=== PATIENT | female | born 1940 | race Caucasian/White ===

== ENCOUNTER 2017-01-09 05:56 | Inpatient (IN) | payer OTHER ==
--- NOTE | 2016-12-29 14:09 | GHP ---
[f rep st] PREOP HISTORY AND PHYSICAL DATE OF SURGERY: Scheduled for 01/09/2017. PROBLEM: Revision of right total hip arthroplasty for polyethylene wear. HISTORY OF PRESENTING ILLNESS: The patient is a 76-year-old woman admitted for revision surgery on her right total hip. She underwent a right total hip arthroplasty by Dr. Eduard Rios in [place] in 2002. She has done reasonably well with the hip over the years. In mid October of 2016, she sustained a dislocation of the right hip while hiking. 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 PAST MEDICAL HISTORY: Overall, she is in good general health. She has had a partial colectomy for complications arising from some type of mesh surgery for her hysterectomy. No history of heart disease, DVT, hepatitis, sleep apnea or bleeding problems. She has a left total knee arthroplasty. CURRENT MEDICATIONS: Apresoline p.r.n. for sleep. Lexapro every other day for depression. ALLERGIES: Drug allergies: None. Metal allergy: None. Latex allergy: None. SOCIAL HISTORY: The patient does not smoke cigarettes and occasionally drinks alcohol. 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 FAMILY HISTORY: Positive for cancer, arthritis and a blood coagulation disorder. PHYSICAL EXAMINATION: GENERAL: She is a healthy-appearing woman. Height 5 feet 5 inches, weight 125 pounds, BMI 20.8. EYES: Conjunctivae and sclerae are clear. Pupils are round and reactive. MOUTH: Good oral hygiene. No loose teeth. CHEST: Clear. HEART: Regular rhythm. No murmurs. EXTREMITIES : Pertinent findings limited to her right hip. She has full hip extension, 120 degrees of flexion. IMAGING: Her films show a Biomet total hip arthroplasty. There is evidence of polyethylene wear with asymmetrical positioning of the femoral head component within the acetabulum. She has a 28 mm head. The cup and the stem look solid. No significant osteolysis. 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 She will undergo revision surgery for polyethylene liner exchange and exchange of the head for a larger diameter femoral head component. The surgery has been described to her, including the risks, complications, expectations, and recovery time. All her questions have been answered, and she consents to surgery. She is aware that there is a slightly higher risk of dislocation following revision surgery than there is with a primary index surgery. She is aware of the risk of infection, and sciatic nerve injury. All her questions have been answered, and she consents to surgery. /[id number]/MODL MTDD
[~2017-01-09 05:56] MED LIST: ACETAMINOPHEN 325 MG TAB PO ONE; DEXAMETHASONE 4 MG/ML VIAL IVP ONE; FAMOTIDINE 20 MG TAB PO ONE; LIDOCAINE 1% 2 ML INJ ID PRN; LR 1,000 ML IV ONE; ceFAZolin 2 GM/DEXTROSE 100 ML IV ONE
[2017-01-09] MEDS ORDERED: TRANEXAMIC ACID IV ONE (06:00)
[2017-01-09] MEDS ORDERED: POVIDONE-IODINE 20 ML in SODIUM CL IRRIG SOLUTION 500 ML IRR ONE (06:00)
[2017-01-09] MEDS ORDERED: NS IV ONE (06:00)
[2017-01-09] MEDS ORDERED: ROPIVACAINE 0.2% 80 MG, EPINEPHrine 0.2 MG, KETOROLAC TROMETHAMINE 30 MG in BAG 0 ML IU ONE (06:00)
[2017-01-09] MEDS ORDERED: ceFAZolin 1 GM/5 ML SYR ONE (06:50)
--- NOTE | 2017-01-09 07:05 | PDHPUP ---
History & Physical Update H&P update statement: This history and physical update is based on an assessment of the patient which was completed after admission or registration (within 24 hours), but prior to the surgery/procedure. H&P update: H&P reviewed & patient examined, no change in patient's condition since H&P completed
[2017-01-09] MEDS ORDERED: MIDAZOLAM 2 MG/2 ML VIAL ONE (07:12)
[2017-01-09] MEDS ORDERED: ALBUMIN 5% 250 ML BOTTLE IV ONE (07:13)
[2017-01-09] MEDS ORDERED: BUPIVACAINE 0.5% 30 ML SDV ONE (07:15)
[2017-01-09] MEDS ORDERED: PROPOFOL 200 MG/20 ML VIAL ONE (07:30)
[2017-01-09] MEDS ORDERED: fentaNYL 100 MCG/2 ML INJ ONE ×3 (07:44→09:55)
[2017-01-09] MEDS ORDERED: ONDANSETRON 4 MG/2 ML VIAL ONE (07:48)
[2017-01-09] MEDS ORDERED: LIDOCAINE 2% 5 ML SDV ONE (07:48)
[2017-01-09] MEDS ORDERED: SUGAMMADEX SODIUM 200 MG/2 ML VIAL IVP ONE (07:48)
[2017-01-09] MEDS ORDERED: ROCURONIUM 50 MG/5 ML VIAL ONE (07:48)
[2017-01-09] MEDS ORDERED: METOPROLOL TARTRATE 5 MG/5 ML INJ ONE (07:48)
[2017-01-09] MEDS ORDERED: RANITIDINE 50 MG/2 ML VIAL ONE (07:48)
[2017-01-09] MEDS ORDERED: ONDANSETRON 4 MG/2 ML VIAL IVP PRN ×2 (08:01→09:00)
[2017-01-09] MEDS ORDERED: NALOXONE HCL 0.4 MG/ML INJ IVP PRN (08:01)
[2017-01-09] MEDS ORDERED: HYDROmorphONE/DILAUDID 1 MG/ML INJ IVP PRN (08:01)
[2017-01-09] MEDS ORDERED: LR 500 ML IV PRN (08:01)
[2017-01-09] MEDS ORDERED: ALBUTEROL 3 ML DEYVIAL IH PRN (08:01)
[2017-01-09] MEDS ORDERED: fentaNYL 100 MCG/2 ML INJ IVP PRN (08:01)
[2017-01-09] MEDS ORDERED: DEXAMETHASONE 4 MG/ML VIAL IVP PRN (08:01)
--- NOTE | 2017-01-09 08:01 | PDANEPAE ---
ANE Past Medical History - Cardiovascular History Hx Hypertension: No Hx Arrhythmias: No Hx Chest Pain: No Hx Coronary Artery / Peripheral Vascular Disease: No Hx CHF / Valvular Disease: No Hx Palpitations: No - Pulmonary History Hx COPD: No Hx Asthma/Reactive Airway Disease: No Hx Recent Upper Respiratory Infection: No Hx Oxygen in Use at Home: No Hx Sleep Apnea: No Sleep Apnea Screening Result - Last Documented: Negative - Neurologic History Hx Cerebrovascular Accident: No Hx Seizures: No Hx Dementia: No - Endocrine History Hx Diabetes: No - Renal History Hx Renal Disorders: No - Liver History Hx Hepatic Disorders: Yes - Neurological & Psychiatric Hx Hx Neurological and Psychiatric Disorders: Yes Neurological / Psychiatric History Comment: LEFT HAND (CARPAL TUNNEL). STRESS FROM BUISNESS - Cancer History Hx Cancer: Yes Cancer History Comment: SKIN CA - Congenital Disorder History Hx Congenital Disorders: No - GI History Hx Gastrointestinal Disorders: No - Other Health History Other Health History: NONE - Chronic Pain History Chronic Pain: No - Surgical History Prior Surgeries: CARPAL TUNNEL, DEC 2013 ([facility]) EMERGENCY ABD SURGERY KNEE REPLACEMENT. CATERACT ANE Review of Systems Review of Systems: - Exercise capacity METS (RN): 6 METS ANE Patient History - Allergies Allergies/Adverse Reactions: No Known Allergies Allergy (Verified 12/31/13 19:26) - Home Medications Home Medications: Cholecalciferol Vit D3 [Vitamin D3 (*)] 1,000 units PO DAILY 01/02/14 [Last Taken 12/28/16] Herbals/Supplements -Info Only 1 ea PO DAILY 01/02/14 [Last Taken 12/28/16] Vitamin B Complex [B Complex] 1 each PO DAILY 01/02/14 [Last Taken 12/28/16] ALPRAZolam [Xanax 0.5 MG (*)] 0.5 mg PO HS PRN 12/13/16 [Last Taken 01/07/17 22: 00] Escitalopram Oxalate [Lexapro] 10 mg PO Q2D 12/13/16 [Last Taken 01/08/17] Niacin [Niacin 500 mg (*)] 500 mg PO HS 12/13/16 [Last Taken 12/28/16] - NPO status NPO Since - Liquids (Date): 01/09/17 NPO Since - Liquids (Time): 03:00 NPO Since - Solids (Date): 01/08/17 NPO Since - Solids (Time): 19:00 - Smoking Hx Smoking Status: Never smoked - Family Anes Hx Family Hx Anesthesia Complications: NONE ANE Labs/Vital Signs - Vital Signs Blood Pressure: 165/92 Heart Rate: 67 Respiratory Rate: 20 O2 Sat (%): 98 Height: 167.64 cm Weight: 56.699 kg ANE Physical Exam - Airway Neck exam: FROM Mallampati Score: Class 1 Mouth exam: normal dental/mouth exam - Pulmonary Pulmonary: no respiratory distress, no rales or rhonchi, clear to auscultation - Cardiovascular Cardiovascular: regular rate and rhythym, no murmur, rub, or gallop - ASA Status ASA Status: II ANE Anesthesia Plan Anesthesia Plan: general endotracheal anesthesia (Patient with history of unsucesful attempt at SAB in the past, back feels fused), spinal
[2017-01-09] MEDS ORDERED: DIPHENOXYLATE/ATROPINE LOMOTIL 1 TAB PO PRN (09:00)
[2017-01-09] MEDS ORDERED: LACTULOSE 20 GM/30 ML UDCUP PO PRN (09:00)
[2017-01-09] MEDS ORDERED: ONDANSETRON DISINTEGRATING 4 MG TAB PO PRN (09:00)
[2017-01-09] MEDS ORDERED: BISACODYL 10 MG SUPP PR PRN (09:00)
[2017-01-09] MEDS ORDERED: TAPENTADOL HCL 50 MG TAB PO PRN (09:00)
[2017-01-09] MEDS ORDERED: LR 1,000 ML IV SCH (09:00)
[2017-01-09] MEDS ORDERED: KETOROLAC 30 MG/1 ML SDV IVP PRN (09:00)
[2017-01-09] MEDS ORDERED: POLYETHYLENE GLYCOL 3350 17 GM PKT PO PRN (09:00)
[2017-01-09] MEDS ORDERED: CYCLOBENZAPRINE 10 MG TAB PO PRN (09:00)
[2017-01-09] MEDS ORDERED: PROMETHAZINE HCL 25 MG SUPPR PR PRN (09:00)
[2017-01-09] MEDS ORDERED: diphenhydrAMINE 25 MG CAP PO PRN (09:00)
[2017-01-09] MEDS ORDERED: PROMETHAZINE HCL 25 MG/ML INJ IVP PRN (09:00)
[2017-01-09] MEDS ORDERED: MAGNESIUM HYDROXIDE 30 ML UDCUP PO PRN (09:00)
[2017-01-09] MEDS ORDERED: METOCLOPRAMIDE 10 MG/2 ML VIAL IVP PRN (09:00)
[2017-01-09] MEDS ORDERED: traMADol 50 MG TAB PO PRN (09:00)
[2017-01-09] MEDS ORDERED: TEMAZEPAM 15 MG CAP PO PRN (09:00)
--- NOTE | 2017-01-09 09:00 | POSTOPPROG ---
Post Op Note Date of Operation: 01/09/17 Surgeon: Girma Styles Supervisor Braiding: Suresh Rice/Fabienne Vogel Anesthesiologist: Dr. 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 Post-op Diagnosis: Same Procedure: Right total hip arthroplasty revision with liner exchange and femoral head Inf/Abcess present in the surg proc area at time of surgery?: No EBL: 100-500
[2017-01-09] MEDS ORDERED: ALPRAZolam 0.5 MG TAB PO PRN (09:02)
--- NOTE | 2017-01-09 09:54 | POSTANESTH ---
Post Anesthetic Evaluation Cardiovascular Status: Normal, Stable Respiratory Status: Normal, Stable Level of Consciousness/Mental Status: Can Participate in Eval Pain Control: Adequate, Prn Tx Ordered Nausea/Vomiting Control: Adequate, Prn Tx Ordered Complications Possibly Related to Anesthesia: None Noted
--- NOTE | 2017-01-09 10:02 | GOP ---
[f rep st] OPERATIVE REPORT DATE OF OPERATION: 01/09/2017 SURGEON: Girma Styles MD APPLIANCE PARTS COUNTER CLERK: Suresh Rice CFA. Fabienne Vogel RN. ANESTHESIA: General. ANESTHESIOLOGIST: Deya Caballero MD. 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 PROCEDURE PERFORMED: 01/09/2017: Right total hip revision with polyethylene liner exchange and femo ral head changed. FINDINGS: DESCRIPTION OF PROCEDURE: The patient was given 2 g of IV Ancef preoperatively within 60 minutes of surgery. She also received IV tranexamic acid at a dose of 20 mg/kg. She was placed on the [facility] g room table, and Dr. Caballero attempted a spinal anesthetic, but because of degenerative changes in he r lumbar spine, it was unsuccessful. She was then placed supine and given general anesthesia. A Fol ey catheter was not used. She wore and ALECIA stocking and SCD on the nonoperative leg. She was rolled to the left lateral decubitus position. The position was secured with a pegboard table attachment. An axillary roll was used, and all pressure points were carefully padded. I was careful to lock her pelvis in a vertical position. Her perineum was isolated with plastic adhesive drapes. Her right h ip and right lower extremity were prepped with ChloraPrep. They were draped free using sterile sheet s, stockinette, and Ioban plastic drapes. The World Health Organization time-out was performed to verify the correct surgical side and site and patient identity. The Samson time-out was also performed. I reopened her original posterolateral skin incision, which was about 6 inches in length. Subcutaneous tissues were sharply divided, and he mostasis was obtained using electrocautery. She had a very thin layer of subcutaneous fat. Her fasc ia donato was identified and split along the axis of its fibers. I could see some residual nonabsorbab le sutures in the fascia donato. Most of these were removed. I curved posteriorly and proximally, and split the fascia of the gluteus melanie and bluntly split the muscle fibers in line with their orien tation. The Charnley self-retaining retractor was inserted. Her sciatic nerve was incorporated in s car tissue posteriorly. I dissected directly off the back of the greater trochanter and stayed away from the area of the sciatic nerve. She had quite a bit of dense scar tissue posteriorly. The combi frida layer of repaired external rotators and posterior hip capsule were divided at the base of the fem oral neck, tagged, and reflected posteriorly. A modest amount of clear synovial fluid was present in the joint. There was quite a bit of lobulated, chronically inflamed scar tissue and synovium in the joint. I excised a section of this tissue and sent it for culture and for histologic examination. I began excising a lot of the posterior scar tissue. I dissected over the superior anterior aspect o f the acetabular component. The hip was dislocated posteriorly. A smooth 8-inch Steinmann pin was i nserted vertically into the ilium, superior to the acetabulum. This acted as a retractor for the abd uctors. I used a bone tamp to tap off the femoral head. There was obvious wear of the polyethylene. Before dislocation, I had checked for stability. Because of the increased wear in the play in the articulation between the femoral head and the polyethylene, she was definitely unstable posteriorly a t 90 degrees of flexion and 10 or 20 degrees of internal rotation. Using appropriate retractors, I held the proximal femur and the neck portion of the femoral component anteriorly. This gave me good access to the acetabulum. Using scalpel and electrocautery, I excise d scar tissue from around the perimeter of the acetabular component. The little slot for chief loose rachel the fixation rim for the polyethylene was inferior and posterior. I could not get the loosening instrument aligned in a proper angle. I went ahead and used a 0.5 inch osteotome to pry out the annabella yethylene. I was able to do that without damaging the locking ring. I did a trial reduction with a lipped liner. My plan was to substitute with a 32 mm head; she had a [address] originally. I did the trial reduction with a 0 neck length and a 32 mm head. Th e hip was very stable in flexion, adduction, and up to 70 degrees of internal rotation. She was also stable anteriorly. The acetabulum was irrigated and cleaned. I selected the Biomet vitamin E-infused liner with a lip. This was inserted and tapped securely into place. The locking mechanism worked well. I dialed the lip so that it was directly posterior. I then carefully cleaned the trunnion. There was no evidence of corrosion of the trunnion. I select ed a Biomet 32 mm cobalt chrome head with a 0 neck length. This was tapped securely onto the clean t runnion. I did another reduction and checked the stability. She was very stable. I did not change her leg length. Preoperatively the position of her acetabular shell was excellent and it did not nee d to be changed her altered. The wound was thoroughly irrigated. The combined layer of scarred capsule and external rotators was repaired using #2 FiberWire sutures through drill holes in the greater trochanter. One final irrigation was performed with dilute Betadine solution. Subcutaneous tissues were injected with 40 mL of the joint cocktail. Her fascia donato was closed first with a couple of interrupted [id number] #2 FiberWire sutures fo llowed by a running #2 barbed Ethicon Stratafix PDO suture. Subcutaneous tissues were closed with a running 0 barbed Ethicon Stratafix Monoderm suture. The skin was closed with a running 3-0 barbed Et hicon Stratafix Monoderm subcuticular suture. The skin edges were reapproximated and sealed with Doug mabond glue. The wound was covered with a strip of Telfa and everything was held in place with a pie ce of Aquacel Ag surgical dressing. A long-leg ALECIA stocking and SCD were applied to her right lower extremity. She wore a stocking and S CD on the opposite leg during the procedure. An abduction pillow was placed between her knees. She was awakened from anesthesia and rolled to the supine [facility] She was taken to PACU in satisfactory condition. There were no recognized intraoperative complications. The estimated blood loss was about 200 mL. The sponge and needle counts were correct on 2 occasions. Her original implants were made by [employer]. I used a vitamin E-infused lipped polyethylene liner. Th e femoral head was a 32 mm cobalt chrome head with a 0 neck length. Suresh Rice and Fabienne Vogel acted as surgical assistants. Their assistance was a medical necessi ty for safe completion of the procedure. Copy requested to: Dr. Chanel Kelley, [place] /[id number]/MODL
[2017-01-09] MEDS: oxyCODONE IR 5 MG TAB PO PRN (11:04)
[2017-01-09] MEDS: ACETAMINOPHEN 325 MG TAB PO SCH ×2 (12:35→17:32)
[2017-01-09] MEDS: FERROUS SULFATE 140 MG TAB.ER PO SCH (13:41)
[2017-01-09] MEDS: SENNOSIDES/DOCUSATE SODIUM TAB PO SCH ×2 (13:41→20:34)
[2017-01-09] MEDS: ceFAZolin 2 GM/DEXTROSE 100 ML IV SCH ×2 (14:17→22:11)
[2017-01-09] MEDS: FAMOTIDINE 20 MG TAB PO SCH (20:34)
[2017-01-09] MEDS: ASPIRIN 325 MG TAB PO SCH (20:34)
[2017-01-09] MEDS ORDERED: NIACIN 500 MG TAB PO SCH (21:00)
[2017-01-09 23:58] VITALS: RESP 18
[2017-01-10] MEDS: ACETAMINOPHEN 325 MG TAB PO SCH ×2 (01:23→09:28)
[2017-01-10 04:59] LABS: HEMATOCRIT 37.5 % (38.0-47.0); HEMOGLOBIN 12.6 g/dL (12.6-16.3)
--- NOTE | 2017-01-10 07:48 | SOAPPROG ---
SOAP Progress Note Assessment/Plan: Assessment: Afebrile. Min pain. Up and walking in [place]. Dsg is dry. H/H is good. Sciatic nerve intact. Plan:Continue PT Home later today. 01/10/17 07:47 Objective: Vital Signs Temp Pulse Resp BP Pulse Ox 36.9 C 69 18 143/75 H 96 01/10/17 03:58 01/10/17 03:58 01/10/17 03:58 01/10/17 03:58 01/10/17 03:58 Microbiology 01/09/17 08:00 Gram Stain - Final Hip - Tissue 01/09/17 08:00 Gram Stain - Final Hip - Eswab Laboratory Results 01/10/17 04:11 01/09/17 01/10/17 01/11/17 05:59 05:59 05:59 Intake Total 1855 Output Total 1600 Balance 255 ICD10 Worksheet Patient Problems: Problems Problem Status Onset Failed total hip arthroplasty with dislocation Acute Abrasions of multiple sites Acute Cecal volvulus Acute Concussion Acute Facial laceration Acute
[2017-01-10 08:10] VITALS: BP 139/67; PULSE 77; TEMP 97; O2SAT 93
--- NOTE | 2017-01-10 08:13 | GDS ---
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 OPERATION PERFORMED: Right total hip arthroplasty revision with exchange of the femoral head and annabella yethylene cup liner. POSTOPERATIVE COMPLICATIONS: None. CONDITION ON DISCHARGE: Improved. DESCRIPTION OF HOSPITAL COURSE: The patient was admitted to the hospital on the morning of surgery. Her admission CBC was normal. The same day, under general anesthesia, she underwent revision surger y on her right total hip arthroplasty. She had evidence of definite polyethylene wear. Postoperativ keny, she was treated with multimodal DVT prophylaxis, including aspirin and early mobilization. On t he first postoperative day, her hemoglobin and hematocrit were 12.6 and 37.5. She made rapid progres s with physical therapy for ambulation and stairs. By the time of discharge, she was afebrile, comfo rtable and walking independently with a walker. DISPOSITION: The patient discharged to her home. She will go to outpatient physical therapy. She m ay progress to full weightbearing on the right as tolerated. Use an abduction pillow in bed for 3 we eks. ALECIA stockings for 1 week. Continue aspirin 325 mg p.o. daily for 21 days. She has prescriptio ns for oxycodone and tramadol for pain control. If there are any problems, she is to call me at the office. I will see her back in the office on February 01, 2017. /[id number]/MODL
[2017-01-10] MEDS ORDERED: CHOLECALCIFEROL VIT D3 1,000 UNITS TAB PO SCH (09:00)
[2017-01-10] MEDS ORDERED: VITAMIN B COMPLEX 1 EA CAP/TAB PO SCH (09:00)
[2017-01-10] MEDS: FERROUS SULFATE 140 MG TAB.ER PO SCH (09:27)
[2017-01-10] MEDS: SENNOSIDES/DOCUSATE SODIUM TAB PO SCH (09:27)
[2017-01-10] MEDS: ASPIRIN 325 MG TAB PO SCH (09:28)
[2017-01-10] MEDS: FAMOTIDINE 20 MG TAB PO SCH (09:29)
[2017-01-10] MEDS: oxyCODONE IR 5 MG TAB PO PRN (10:09)
--- NOTE | 2017-01-10 11:59 | ASMTCMCOM ---
CM Note CM Note Notes: Pt clears pt. Pt medically stable for d/c, no CM d/c needs identified. Date Signed: 01/10/2017 11:58 AM Electronically Signed By:GAEL Wilcox
--- NOTE | 2017-01-10 13:30 | ASDISCHSUM ---
Discharge Information Plan Status:Home with No Needs Medically Cleared to Leave: Discharge Date:01/10/2017 12:25 PM CM D/C Disposition:Home, Routine, Self-Care ADT D/C Disposition:Home, Routine, Self-Care Projected Discharge Date:01/10/2017 12:25 PM Transportation at D/C: Discharge Delay Reason: Follow-Up Date:01/10/2017 12:25 PM Discharge Slot: Final Diagnosis: Placement Information Patient Contact Information Contact Name:DEAN Relationship:Daughter Address: Work Phone: City: [facility] Phone: State/Zip Code:[place] Email: Financial Information Financial Class:Medicare Advantage Plans Primary Plan Desc:[employer] MEDICARE COMPLETE Primary Plan Number:[id number] Secondary Plan Desc: Secondary Plan Number: Assessment Information [facility] CM Progress Note CM Note CM Note Notes: Pt clears pt. Pt medically stable for d/c, no CM d/c needs identified. Date Signed: 01/10/2017 11:58 AM Electronically Signed By:GAEL Wilcox Intervention Information
[2017-01-11] MEDS ORDERED: ESCITALOPRAM OXALATE 10 MG TAB PO SCH (09:00)
== END 2017-01-10 12:25 | disposition home or self-care (01) | DRG 468 ==
LOC: F3N 05:56
PROVIDERS: ADMIT Orthopaedic Surgery; ATTEND Orthopaedic Surgery
DX: T84.020A Dislocation of internal right hip prosthesis, initial encounter (principal)
CPT/HCPCS: 97110-GP; 97116-GP; 97161-GP; 97165-GO; G8978-GP-CI; G8979-GP-CI; G8980-GP-CI; G8987-GO-CI; G8988-GO-CI; G8989-GO-CI; J0171; J0690; J1100; J1885; J2250; J2405; J2704; J2780; J2795; J3010; P9041

== ENCOUNTER 2017-01-19 09:14 | Emergency (ER) | payer OTHER ==
[2017-01-19 09:21] VITALS: O2SAT 99
--- NOTE | 2017-01-19 09:29 | CPEKG ---
Heart Rate: 80 RR Interval: 750 P-R Interval: 180 QRSD Interval: 98 QT Interval: 388 QTC Interval: 448 P Canute: 63 QRS Canute: 70 T Wave Canute: 35 EKG Severity - OTHERWISE NORMAL ECG - EKG Impression: SINUS RHYTHM EKG Impression: ATRIAL PREMATURE COMPLEX EKG Impression: Similar to 2013 Electronically Signed By: Ba Solorzano 19-Jan-2017 09:46:34
[2017-01-19] MEDS ORDERED: NS 1,000 ML IV ONE (09:38)
[2017-01-19] MEDS ORDERED: PANTOPRAZOLE SODIUM 40 MG TAB PO ONE (09:42)
--- NOTE | 2017-01-19 09:45 | EDPHY ---
H & P Stated Complaint: hip surg 01/09/ pt with diarrhea and black stools/dizzyness occasionally Time Seen by Provider: 01/19/17 09:29 HPI/ROS: CHIEF COMPLAINT: Black stool HISTORY OF PRESENT ILLNESS: Patient is a 76-year-old female who comes to the emergency department complaining of black stool for the last 3 days. It is now turned into diarrhea today and she feels slightly lightheaded. She has remote history of peptic ulcer disease 30 years ago. She also has a partial colectomy 3 years ago after which she describes as an internal hernia. She is 5 days status post partial hip replacement. She denies hip pain. She states that she is ambulating without any difficulty and went for a hike yesterday. She denies abdominal pain. No chest pain or shortness of breath. She takes aspirin daily. REVIEW OF SYSTEMS: Constitutional: denies: chills, fever, recent illness, recent injury EENTM: denies: blurred vision, double vision, nose congestion Respiratory: denies: cough, shortness of breath Cardiac: denies: chest pain, irregular heart rate, lightheadedness, palpitations Gastrointestinal/Abdominal: See HPI denies: abdominal pain, nausea, vomiting, blood streaked stools Genitourinary: denies: dysuria, frequency, hematuria, pain Musculoskeletal: denies: joint pain, muscle pain Skin: denies: lesions, rash, jaundice, bruising Neurological: denies: headache, numbness, paresthesia, tingling, dizziness, weakness Hematologic/Lymphatic: denies: blood clots, easy bleeding, easy bruising Immunologic/allergic: denies: HIV/AIDS, transplant EXAM: GENERAL: Well-appearing, well-nourished and in no acute distress. HEAD: Atraumatic, normocephalic. EYES: Pupils equal round and reactive to light, extraocular movements intact, sclera anicteric, conjunctiva are normal. ENT: TMs normal, nares patent, oropharynx clear without exudates. Moist mucous membranes. NECK: Normal range of motion, supple without lymphadenopathy or JVD. LUNGS: Breath sounds clear to auscultation bilaterally and equal. No wheezes rales or rhonchi. HEART: Regular rate and rhythm without murmurs, rubs or gallops. ABDOMEN: Soft, nontender, normoactive bowel sounds. No guarding, no rebound. No masses appreciated. : Black stool, no visible hemorrhoid BACK: No CVA tenderness, no spinal tenderness, step-offs or deformities EXTREMITIES: Normal range of motion, no pitting or edema. No clubbing or cyanosis. Right hip incision clean dry and intact. NEUROLOGICAL: Cranial nerves II through XII grossly intact. Normal speech, normal gait. 5/5 strength, normal movement in all extremities, normal sensation PSYCH: Normal mood, normal affect. SKIN: Warm, dry, normal turgor, no visible rashes or lesions. Source: Patient Exam Limitations: No limitations - Personal History Current Tetanus/Diphtheria Vaccine: Yes - Medical/Surgical History Hx Asthma: No Hx Chronic Respiratory Disease: No Hx Diabetes: No Hx Cardiac Disease: Yes Hx Renal Disease: No Hx Cirrhosis: No Hx Alcoholism: No Hx HIV/AIDS: No Hx Splenectomy or Spleen Trauma: No Other PMH: HX: OCCASSIONAL EPISODES OF TACHYCARDIA, Depression. PSH- R hip, R knee. HYTERECTOMY. CONCUSSION, partial colectomy - Family History Significant Family History: No pertinent family hx - Social History Smoking Status: Never smoked Alcohol Use: Sober Drug Use: None Constitutional: Initial Vital Signs Temperature (C) 36.7 C 01/19/17 09:18 Heart Rate 85 01/19/17 09:18 Respiratory Rate 20 01/19/17 09:18 Blood Pressure 133/85 H 01/19/17 09:18 O2 Sat (%) 99 01/19/17 09:18 O2 Delivery Mode Room Air Allergies/Adverse Reactions: No Known Allergies Allergy (Verified 01/19/17 09:16) Home Medications: Medication Instructions Recorded Cholecalciferol Vit D3 [Vitamin D3 1,000 units PO DAILY 01/02/14 (*)] Vitamin B Complex [B Complex] 1 each PO DAILY 01/02/14 ALPRAZolam [Xanax 0.5 MG (*)] 0.5 mg PO HS PRN 12/13/16 Escitalopram Oxalate [Lexapro 10 10 mg PO Q2D 12/13/16 MG] Niacin [Niacin 500 mg (*)] 500 mg PO HS 12/13/16 Acetaminophen [Tylenol 325mg (*)] 650 mg PO Q6HRS tab 01/10/17 Aspirin [Aspirin 325 mg (*)] 325 mg PO DAILY tab 01/10/17 Ferrous Sulfate [Slow Fe 140 MG 140 mg PO DAILY tab.er 01/10/17 (*)] Medical Decision Making - Diagnostics EKG Interpretation: An EKG obtained and was read and documented in trace view. Please see trace view for full reading and report. Sinus rhythm, no acute ischemic changes ED Course/Re-evaluation: The patient's lab work is unremarkable and her stool sample is negative. It is dark. She has started taking iron supplements since the surgery. This may be causing the dark stool. She states that timing correlates well. She now states that she had loose stool for few days prior to surgery as well. It did not turn dark until she began taking iron supplementation. She feels reassured and would like to go home. I will road test her to see if she feels dizzy or lightheaded make sure she is not hypotensive. 11:00 a.m. the patient states that she did completely well throat testing. Her vital signs remained stable. She is eager to go. She will stop taking the iron pills. She is not anemic and her hematocrit has improved since the surgery. She declines further workup or observation and is eager to go home. We discussed indications for returning. We discussed follow-up. Differential Diagnosis: Partial list of the Differential diagnosis considered include but were not limited to; GI bleed, peptic ulcer disease, iron supplementation and although unlikely based on the history and physical exam, I also considered ischemia, perforation, volvulus, hemorrhoid. I discussed these differential diagnoses and the plan with the patient as well as the usual and expected course. The patient understands that the diagnosis is provisional and that in medicine we are not always correct and that further workup is often warranted. Usual and customary warnings were given. All of the patient's questions were answered. The patient was instructed to return to the emergency department should the symptoms at all worsen or return, otherwise to followup with the physician as we discussed. - Data Points Laboratory Results: Laboratory Results 01/19/17 09:25 01/19/17 09:25 Medications Given: Discontinued Medications Sodium Chloride (Ns) 1,000 mls @ 0 mls/hr IV EDNOW ONE; Wide Open PRN Reason: Protocol Stop: 01/19/17 09:39 Last Admin: 01/19/17 09:52 Dose: 1,000 mls Pantoprazole Sodium (Protonix) 40 mg PO EDNOW ONE Stop: 01/19/17 09:43 Last Admin: 01/19/17 09:53 Dose: 40 mg Departure - Departure Disposition: Home, Routine, Self-Care Clinical Impression: Dark stools Condition: Fair Instructions: Iron Supplements (By mouth) Referrals: Grace Looney MD [Primary Care Provider] - As per Instructions
[2017-01-19 09:51] LABS: % IMMATURE GRANULYOCYTES 0.5 % (0.0-1.1); ABSOLUTE IMMATURE GRANULOCYTES 0.03 10^3/uL (0.00-0.10); ADD DIFF? NO; ADD MORPH? NO; ADD SCAN? NO; ATYPICAL LYMPHOCYTE FLAG 0 (0-99); FRAGMENT RBC FLAG 0 (0-99); HEMOGLOBIN 13.1 g/dL (12.6-16.3); LEFT SHIFT FLG 0 (0-99); LIPEMIA HEMOLYSIS FLAG 80 (0-99); MEAN CELL HEMOGLOBIN 30.3 pg (27.9-34.1); MEAN CELL HEMOGLOBIN CONCENTR. 33.6 g/dL (32.4-36.7); MEAN CELL VOLUME 90.1 fL (81.5-99.8); PLATELET CLUMPS FLAG 0 (0-99); PLATELET COUNT 574 10^3/uL (150-400); RED BLOOD CELL COUNT 4.33 10^6/uL (4.18-5.33); RED CELL DISTRIBUTION WIDTH 13.4 % (11.5-15.2)
[2017-01-19 09:52] LABS: INR 0.97 (0.83-1.16); PROTIME(PATIENT) 12.8 SEC (12.0-15.0)
[2017-01-19 09:53] LABS: APTT 29.5 SEC (23.0-38.0)
[2017-01-19 10:07] LABS: ALANINE AMINOTRANSFERASE 30 IU/L (9-52); ALBUMIN 3.8 g/dL (3.5-5.0); ALKALINE PHOSPHATASE 98 IU/L (38-126); ANION GAP 11 mEq/L (8-16); ASPARTATE AMINOTRANSFERASE 26 IU/L (14-46); BILIRUBIN,TOTAL 0.8 mg/dL (0.1-1.4); BILIRUBIN-CONJUGATED 0.1 mg/dL (0.0-0.5); BILIRUBIN-UNCONJUGATED 0.7 mg/dL (0.0-1.1); CALCIUM 9.5 mg/dL (8.5-10.4); CARBON DIOXIDE 26 mEq/l (22-31); CHLORIDE 102 mEq/L (97-110); CREATININE 0.5 mg/dL (0.6-1.0); GLOMERULAR FILTRATION RATE > 60; GLUCOSE 98 mg/dL (70-100); POTASSIUM 3.9 mEq/L (3.5-5.2); SODIUM 139 mEq/L (134-144); TOTAL PROTEIN 6.3 g/dL (6.3-8.2)
[2017-01-19 10:54] VITALS: BP 141/96; PULSE 98; RESP 19; TEMP 98.2
== END 2017-01-19 11:14 | disposition home or self-care (01) ==
DX: K92.1 Melena (principal); E86.9 Volume depletion, unspecified; Z90.49 Acquired absence of other specified parts of digestive tract; Z79.82 Long term (current) use of aspirin

== ENCOUNTER → 2017-02-19 | Outpatient (CLI) | payer OTHER | LOC: FIMAGING 14:18 | PROVIDERS: ATTEND Family Medicine | DX: Z12.31 Encounter for screening mammogram for malignant neoplasm of breast (principal) | CPT/HCPCS: G0202 ==

== ENCOUNTER → 2018-01-09 | Outpatient (CLI) | payer OTHER | LOC: FIMAGING 13:34 | PROVIDERS: ATTEND Family Medicine | DX: Z13.820 Encounter for screening for osteoporosis (principal); M81.0 Age-related osteoporosis without current pathological fracture ==

== ENCOUNTER → 2018-04-25 | Outpatient (CLI) | payer OTHER | LOC: FIMAGING 15:23 | PROVIDERS: ATTEND Family Medicine | DX: Z12.31 Encounter for screening mammogram for malignant neoplasm of breast (principal); Z80.3 Family history of malignant neoplasm of breast ==